=== PATIENT | female | born 1990 | race Caucasian/White ===

== ENCOUNTER 2020-12-08 14:36 | Emergency (ER) | payer OTHER ==
[~2020-12-08] VITALS: Ht 152.4 cm; Wt 76.8 kg
[2020-12-08 15:05] LABS: COLLECTION METHOD CLEAN CATCH
[2020-12-08 15:16] LABS: BASO % 0.4 % (0.0-2.0); EOS # 0.1 (0.0-0.7); EOS % 1.4 % (0-4.0); GRAN # 7.8 (1.4-6.5); HEMATOCRIT 44.2 % (37.0-47.0); HEMOGLOBIN 14.7 g/dl (12.5-16.0); LYMPH # 1.8 (1.2-3.4); LYMPH % 17.2 % (20.0-51.0); MEAN CELL VOLUME 83 fl (80.0-100.0); MEAN CORPUSCULAR HEMOGLOBIN 28 pg (27.0-31.0); MEAN CORPUSCULAR HGB CONC 33 g/dl (33.0-37.0); MEAN PLATELET VOLUME 12.8 fl (7.4-10.4); MONO # 0.5 (0.1-0.6); MONO % 4.6 % (1.7-9.3); PLATELET COUNT 197 K/mm3 (130-400); RED BLOOD COUNT 5.32 M/mm3 (4.10-5.30); REDCELL DISTRIBUTION WIDTH-CV 13.1 % (11.5-14.5)
[2020-12-08 15:22] LABS: ALANINE AMINOTRANSFERASE 34 U/L (4-34); ALBUMIN 4.4 gm/dL (3.5-5.0); ALKALINE PHOSPHATASE 91 U/L (50-136); ANION GAP 9 mmol/L (7-16); AST,SGOT 33 U/L (15-37); BILIRUBIN,TOTAL 0.4 mg/dL (0.0-1.0); BLOOD UREA NITROGEN 15 mg/dL (7-17); CALCIUM 9.3 mg/dL (8.4-10.2); CARBON DIOXIDE 23 mmol/L (22-30); CHLORIDE 109 mmol/L (98-107); CREATININE, serum 0.67 (0.52-1.25); GLUCOSE 114 mg/dL (74-106); POTASSIUM 3.6 mmol/L (3.4-5.0); SODIUM 140 mmol/L (137-145); TOTAL PROTEIN 7.9 gm/dL (6.4-8.2)
[2020-12-08 15:24] LABS: C-REACTIVE PROTEIN < 0.5 mg/dL (0.0-0.9)
[2020-12-08 15:34] LABS: BUDDING YEAST Present /hpf; MUCOUS Present /lpf; PH 6 (5-8); URINE APPEARANCE Turbid; URINE BACTERIA Rare /hpf; URINE BILIRUBIN Negative (NEGATIVE); URINE BLOOD 3+ (NEGATIVE); URINE COLOR Red; URINE GLUCOSE Negative (NEGATIVE); URINE KETONE Trace (NEGATIVE); URINE LEUKOCYTE ESTERASE Negative (NEGATIVE); URINE NITRATE Negative (NEGATIVE); URINE PROTEIN(semi-quant) 3+ (NEGATIVE); URINE RBC >50 /hpf; URINE UROBILINOGEN Negative (NEGATIVE)
[2020-12-08 20:07] VITALS: BP 131/79; PULSE 81; TEMP 98
== END 2020-12-08 20:07 | disposition home or self-care (01) ==
LOC: COL.ER 14:36
PROVIDERS: Physician Assistant
DX: N13.2 Hydronephrosis with renal and ureteral calculous obstruction (principal); Z88.6 Allergy status to analgesic agent
CPT/HCPCS: J0696; J1170; J1885; J2270; J2405; J2550; J7030; Q9967

== ENCOUNTER 2020-12-09 09:10 | Observation (INO) | payer OTHER ==
[~2020-12-09] VITALS: Ht 152.4 cm; Wt 77.5 kg
[2020-12-09 11:31] VITALS: BP 118/78; PULSE 73; TEMP 98.6
--- NOTE | 2020-12-09 11:51 | NUR ---
INITIAL ASSESSMENTS COMPLETE. WAREHOUSE SHIPPING ASSOCIATE STARTED PER ORDERS. PT UP TO BR X2 VOIDING NO STONES PASSED AT THIS TIME. PT IS A/O X3, VSS.
[2020-12-09 12:27] VITALS: BP 124/77; PULSE 64
--- NOTE | 2020-12-09 16:26 | NUR ---
PT UP TO BR INDEPENDENTLY. NAUSEA AFTER AMBULATING.
--- NOTE | 2020-12-09 19:11 | NUR ---
Awake, alert, oriented x 4, able to make needs known, BETTING AGENCY MANAGER infusing per orders, paitent tolerating well, respirations even & unlabored. Updated on plan of care.
[2020-12-09 20:33] VITALS: BP 115/65; PULSE 70; TEMP 97.9
[2020-12-10] VITALS (12 sets, daily range): BP systolic 96–138; BP diastolic 45–95; PULSE 78–106; TEMP 98–98.9
--- NOTE | 2020-12-10 09:10 | NUR ---
Patient is going down for her procedure. She is having pain but has been off HADOOP SOFTWARE ENGINEER for about 20mins. Consent signed and on chart. Denies nausea at this time. is at bedside. Patient shower and brushed her teeth before surgery. No other changes at this time.
--- NOTE | 2020-12-10 09:30 | NUR ---
Initial visit; Patient indisposed, thanked Live Games Dealer for wishing for a successful surgical procedure and God's blessings.
--- NOTE | 2020-12-10 11:00 | NUR ---
Patient is back from surgery. Rating pain at about 1 on a 0-10 scale. She is having some nausea. She wanted to get up to the bathroom right away. Explained she might have some bleeding. With urination and that the urge may continued after she voids. Explained she has to eat, drink and void before dischargeing. No other changes at this time. Call light within reach. Her is at bedside.
[2020-12-10] MEDS ORDERED: FLOMAX 0.40.4 MG/CAP PO (14:18)
[2020-12-10] MEDS ORDERED: ZOFRAN 4MG T4 MG/TAB PO (14:19)
[2020-12-10] MEDS ORDERED: ROXICODONE 55 MG/TAB PO (14:20)
--- NOTE | 2020-12-10 14:45 | NUR ---
Patient is discharging home. Her nausea has resolved. She denies pain at this time. Discharge instructions dicussed with patient and her . No questions verbalized. INT discontinued. Written prescriptions given to patient to get filled. Explained that the office will call with follow up appointment. All belongings packed up and sent with patient. Patient walked out with this nurse. Copies of discharge instructions sent with patient.
== END 2020-12-10 14:45 | disposition home or self-care (01) ==
LOC: SURG 09:10
PROVIDERS: ADMIT Urology
DX: N20.1 Calculus of ureter (principal); N28.89 Other specified disorders of kidney and ureter; K21.9 Gastro-esophageal reflux disease without esophagitis; D64.9 Anemia, unspecified; G43.909 Migraine, unspecified, not intractable, without status migrainosus; F43.10 Post-traumatic stress disorder, unspecified; F17.210 Nicotine dependence, cigarettes, uncomplicated; F32.9 Major depressive disorder, single episode, unspecified; F41.9 Anxiety disorder, unspecified; Z79.899 Other long term (current) drug therapy
CPT/HCPCS: C1769; C2617; G0378; J1170; J2270; J2405; J2704; J3010; J7030; J7120; Q9967